=== PATIENT | female | born 1960 | race Caucasian/White ===

== ENCOUNTER 2016-12-02 07:28 | Inpatient (IN) ==
[2016-11-26 14:25] LABS: Appearance,Urine CLEAR; Bilirubin,Urine NEG (NEG); Color,Urine COLORLESS; Glucose,Urine (UA) NEGATIVE (NEG); Leukocyte Esterase,Urine NEG /uL (NEG); Nitrate,Urine NEG (NEG); Protein,Urine NEG (NEG); Specific Gravity,Urine 1.005 (1.000-1.035); Urine Blood NEG mg/dL (<0.03); Urobilinogen,Urine NEG (NEG)
[2016-11-26 14:33] LABS: Basophils # (Auto) 0 K/mcL (0.0-0.3); Basophils % (Auto) 0.5 % (0.0-2.0); Eosinophils # (Auto) 0.1 K/mcL (0.0-0.7); Eosinophils % (Auto) 1.1 % (0.0-7.0); Granulocytes % (Auto) 50.2 % (38.0-78.0); Lymphocytes # (Auto) 2.7 K/mcL (1.5-4.8); Lymphocytes % (Auto) 38.5 % (15.5-49.0); Mean Cell Volume 91.4 fL (80.0-100.0); Mean Corpuscular HGB Conc 33.7 g/dL (31.0-36.0); Mean Corpuscular Hemoglobin 30.8 pg (26.0-34.0); Monocytes # (Auto) 0.7 K/mcL (0.1-0.9); Monocytes % (Auto) 9.7 % (1.0-12.0); Platelet Count 284 K/mcL (140-440); Red Cell Distribution Width 12.9 % (11.5-14.5)
[2016-11-26 14:44] LABS: Blood Urea Nitrogen 17 mg/dl (6-20)
[~2016-12-02 07:28] MED LIST: ACETAMINOPHEN 500 MG TABLET PO SCH; CELECOXIB 200 MG CAPSULE PO SCH; KETOROLAC 30 MG, ROPIVACAINE HCL/PF 49.5 ML, EPINEPHrine 0.5 MG, 0.9 % SODIUM CHLORIDE ... IJ SCH; PREGABALIN 75 MG CAPSULE PO SCH; ceFAZolin 1 GM VIAL IV SCH; oxyCODONE 10 MG TAB.ER.12H PO SCH
[2016-12-02] MEDS ORDERED: SCOPOLAMINE 1 PATCH PATCH TOPICAL ONE (07:49)
[2016-12-02] MEDS ORDERED: ROPIVACAINE HCL/PF 30 ML VIAL IJ ONE (09:15)
[2016-12-02] MEDS ORDERED: PHENYLEPHRINE 10 MG/ML VIAL IV ONE (09:15)
[2016-12-02] MEDS ORDERED: TRANEXAMIC ACID 1,000 MG/10 ML VIAL IV ONE ×2 (09:15→11:25)
[2016-12-02] MEDS ORDERED: ONDANSETRON 4 MG/2 ML VIAL IV ONE (09:15)
[2016-12-02] MEDS ORDERED: PROPOFOL 200 MG/20 ML VIAL IV ONE (09:15)
[2016-12-02] MEDS ORDERED: DEXAMETHASONE 10 MG/ML VIAL IV ONE (09:15)
[2016-12-02] MEDS ORDERED: LIDOCAINE HCL/PF 100 MG/5 ML SYRINGE IV ONE (09:15)
[2016-12-02] MEDS ORDERED: fentaNYL 250 MCG/5 ML VIAL IV ONE (09:15)
[2016-12-02] MEDS ORDERED: MIDAZOLAM 2 MG/2 ML VIAL IV ONE (09:15)
[2016-12-02] MEDS ORDERED: HYDROCODONE/APAP 7.5/325MG TABLET PO PRN (09:22)
[2016-12-02] MEDS ORDERED: ONDANSETRON 4 MG/2 ML VIAL IV PRN ×3 (09:22→11:27)
[2016-12-02] MEDS ORDERED: HYDROmorphone 2 MG/ML SYRINGE IV PRN ×2 (09:22→11:27)
[2016-12-02] MEDS ORDERED: ONDANSETRON ODT 4 MG TABLET SL PRN ×2 (09:23→11:25)
[2016-12-02] MEDS ORDERED: NITROGLYCERIN 0.4 MG TAB.SUBL SL PRN ×2 (09:23→12:16)
[2016-12-02] MEDS ORDERED: ALBUTEROL SULFATE 1 PUFF INHALER INH PRN ×2 (09:23→12:14)
[2016-12-02] MEDS ORDERED: BENZOCAINE/MENTHOL 1 LOZENGE PO PRN ×2 (11:25→11:27)
[2016-12-02] MEDS ORDERED: BISACODYL 10 MG SUPP.RECT PR PRN (11:25)
[2016-12-02] MEDS ORDERED: FLEETS ADULT ENEMA PR PRN (11:25)
[2016-12-02] MEDS ORDERED: POLYETHYLENE GLYCOL 3350 17 GM PACKET PO PRN (11:25)
[2016-12-02] MEDS ORDERED: MAGNESIUM HYDROXIDE 30 ML ORAL.SUSP PO PRN (11:25)
[2016-12-02] MEDS ORDERED: ACETAMINOPHEN 325 MG TABLET PO PRN (11:25)
[2016-12-02] MEDS ORDERED: FLUMAZENIL 0.1 MG/ML ML IV PRN (11:27)
[2016-12-02] MEDS ORDERED: METOPROLOL TARTRATE 5 MG/5 ML VIAL IV PRN (11:27)
[2016-12-02] MEDS ORDERED: ATROPINE SULFATE 0.4 MG/ML VIAL IV PRN (11:27)
[2016-12-02] MEDS ORDERED: METHOCARBAMOL 1,000 MG/10 ML VIAL IV PRN (11:27)
[2016-12-02] MEDS ORDERED: IPRATROPIUM/ALBUTEROL 3 ML AMPUL.NEB NEB PRN (11:27)
[2016-12-02] MEDS ORDERED: NALOXONE HCL 0.4 MG/ML VIAL IV PRN (11:27)
[2016-12-02] MEDS ORDERED: diphenhydrAMINE 50 MG/ML VIAL IV PRN (11:27)
[2016-12-02] MEDS ORDERED: ePHEDrine 50 MG/ML AMPUL IV PRN (11:27)
[2016-12-02] MEDS ORDERED: MEPERIDINE 25 MG/ML SYRINGE IV PRN (11:27)
[2016-12-02] MEDS ORDERED: PROMETHAZINE 25 MG/ML VIAL IV PRN (11:27)
--- NOTE | 2016-12-02 11:33 | Brief Operative Note ---
Date of procedure: 12/02/16 Pre-op diagnosis: left knee djd Post-op diagnosis: same Procedure: left tka with david robot Grafts/Implants: Yes Anesthesia: GETA Surgeon: Elian Collins Receivable Executive: Irwin Davidson Estimated blood loss (cc): 50 Tourniquet Time (Minutes): 70 Specimens Removed/Pathology: none sent Condition: stable Disposition: PACU
[2016-12-02] MEDS: fentaNYL 100 MCG/2 ML VIAL IV PRN ×4 (11:40→12:19)
[2016-12-02] MEDS ORDERED: GENTAMICIN SULFATE 800 MG/20 ML VIAL IR ONE (11:42)
[2016-12-02] MEDS: KETOROLAC 15 MG/ML VIAL IV SCH ×3 (12:15→23:59)
[2016-12-02] MEDS ORDERED: SIMETHICONE 80 MG TAB.CHEW CHEWED PRN ×2 (12:18→12:30)
--- NOTE | 2016-12-02 12:30 | XRay Report ---
CLINICAL INFORMATION: Postop total knee prostheses COMPARISON: None. FINDINGS: Total knee prostheses is anatomically aligned. No osseous abnormality. Soft tissues swelling seen as expected IMPRESSION: Negative Interpreted and Authenticated by: Kwaku Nagy 12/02/16
--- NOTE | 2016-12-02 12:42 | Operative Note ---
DATE OF OPERATION: 12/02/2016 PREOPERATIVE DIAGNOSIS: Left knee degenerative arthritis and rheumatoid arthritis. POSTOPERATIVE DIAGNOSIS: Left knee degenerative arthritis and rheumatoid arthritis. PROCEDURE: Left HENOK robot total knee. SURGEON: Elian Collins MD [employer]INE [employer] PROFESSIONALS: Irwin Davidson PA-C ANESTHESIA: General LMA anesthesia. COMPLICATIONS: None. TOTAL TOURNIQUET TIME: 70 minutes. IMPLANTS: Size 3 tibia, 3 femur and 9 mm poly, cemented components with a 33 mm patellar button. ESTIMATED BLOOD LOSS: 50 mL. DESCRIPTION OF PROCEDURE: The patient was brought to the operating room and put to sleep with LMA anesthesia. Once asleep, the patient had the left leg sterilely prepped and draped in the usual sterile fashion. We identified the incision oakes, initials and the word 'yes'. We had a timeout and preapproved the knee as the correct side. Once this was done, we then sterilely prepped and draped the left lower extremity. We placed this in a leg rand. The leg was exsanguinated up to 250 pounds of pressure. We made a midline incision and mid vastus approach performed. This showed wear medially and laterally. We then proceeded with a total knee arthroplasty with pins below and above the knee. We registered the hip center of rotation medial and lateral malleoli. We registered the intra-articular pins, 1 on the tibia and 1 on the femur. We then registered 30 points on the femur and the tibia for a total knee. We took and balanced the knee, both at 15 degrees of flexion and 90 degrees of flexion. This showed about 3 degrees of recurvatum. We irrigated thoroughly and then brought the robot in and registered the robot and pin on the femur and made our distal femoral cut, posterior chamfer cut, changed the blade and made our anterior and posterior chamfer cuts and posterior cut. Once that was done, we then made the tibial cut. We trialed the components and punched them into place; however, this did reveal the knee to be too tight in extension with 6 degrees of flexion. We then cut another mm off the tibia with the reciprocating saw, retrialed. This seemed to give full extension and flexion. The knee had patella reprepared. This measured 23 mm. This was cut to 13 mm and a 33 mm button was placed with a small lateral chamfer. We irrigated thoroughly and then made our cuts and then trialed the component. These fit very well. We then cemented into place the size 3 femur with a 50 mm stem. A size 3 femoral component was tapped into place and a 9 mm poly. This was placed into extension. We then cemented into place a 33 mm patellar button. Excess cement was removed. Soft tissue injection posterior capsule was performed, medial and lateral. We irrigated thoroughly and then closed the mid vastus approach with #2 FiberWire and #2 double-armed #1 Maxon. We closed the skin with 2-0 Vicryl and adhesive closure. Superior and inferior pin sites were closed with nylon and the intraarticular pins were removed. We irrigated thoroughly. The patient tolerated this well. Sterile bandage was applied. Tourniquet deflated at 70 minutes. DIONI:toño Job ID: [id number] Doc ID: [id number] Elian Collins MD
[2016-12-02] MEDS ORDERED: 0.9 % SODIUM CHLORIDE 10 ML SYRINGE IV SCH (14:00)
[2016-12-02] MEDS: 0.45 % SODIUM CHLORIDE 1,000 ML IV SCH (14:05)
[2016-12-02] MEDS: 0.9 % SODIUM CHLORIDE 10 ML SYRINGE IV SCH ×2 (14:06→21:24)
[2016-12-02] MEDS ORDERED: LORazepam 1 MG TABLET PO SCH (15:00)
[2016-12-02] MEDS: LORazepam 1 MG TABLET PO SCH ×2 (15:39→21:23)
[2016-12-02] MEDS: HYDROcodone/APAP 10/325MG TABLET PO PRN ×2 (16:25→21:24)
[2016-12-02] MEDS: ceFAZolin 1 GM VIAL IV SCH (16:28)
[2016-12-02] MEDS ORDERED: PANTOPRAZOLE 40 MG TABLET PO SCH (21:00)
[2016-12-02] MEDS ORDERED: TEMAZEPAM 15 MG CAPSULE PO PRN (21:00)
[2016-12-02] MEDS ORDERED: BENZTROPINE 1 MG TABLET PO PRN ×2 (21:00)
[2016-12-02] MEDS ORDERED: MONTELUKAST 10 MG TABLET PO SCH (21:00)
[2016-12-02] MEDS ORDERED: FLUTICASONE/SALMETEROL 50/100 INHALER #14 INH SCH (21:00)
[2016-12-02] MEDS ORDERED: PRAMIPEXOLE 0.25 MG TABLET PO SCH (21:00)
[2016-12-02] MEDS ORDERED: QUEtiapine 100 MG TABLET PO SCH (21:00)
[2016-12-02] MEDS: FLUTICASONE/SALMETEROL 50/100 INHALER #14 INH SCH (21:20)
[2016-12-02] MEDS: PANTOPRAZOLE 40 MG TABLET PO SCH (21:21)
[2016-12-02] MEDS: ASPIRIN 325 MG ENTERIC COATED TABLET PO SCH (21:21)
[2016-12-02] MEDS: PRAMIPEXOLE 0.25 MG TABLET PO SCH (21:22)
[2016-12-02] MEDS: MONTELUKAST 10 MG TABLET PO SCH (21:22)
[2016-12-02] MEDS: DOCUSATE SODIUM 100 MG CAPSULE PO SCH (21:22)
[2016-12-02] MEDS: SENNOSIDES 1 TABLET PO SCH (21:22)
[2016-12-02] MEDS: QUEtiapine 100 MG TABLET PO SCH (23:02)
[2016-12-03] MEDS: HYDROcodone/APAP 10/325MG TABLET PO PRN ×6 (01:13→21:22)
[2016-12-03] MEDS: ceFAZolin 1 GM VIAL IV SCH (01:13)
[2016-12-03] MEDS: 0.45 % SODIUM CHLORIDE 1,000 ML IV SCH ×3 (01:14→18:20)
[2016-12-03] MEDS: HYDROmorphone 2 MG/ML SYRINGE IV PRN ×2 (04:28→18:54)
[2016-12-03] MEDS: 0.9 % SODIUM CHLORIDE 10 ML SYRINGE IV SCH ×3 (06:09→21:27)
[2016-12-03] MEDS: KETOROLAC 15 MG/ML VIAL IV SCH ×4 (06:16→23:33)
[2016-12-03] MEDS: LORazepam 1 MG TABLET PO SCH ×4 (06:58→21:21)
--- NOTE | 2016-12-03 07:20 | Orthopedic Progress Note ---
Subjective Patient information: Note initiated : 12/03/16 at 7:19 am Service Date, if different from initiated Date: [] Patient: Chucky,Marivel miller 56 y/o F admitted on 12/02/16 for Left Robotic Total Knee Arthroplasty. Chief Complaint: [Pt is stable this morning on post operative day 1 without any significant concerns or complaints. Patients vital signs have remained stable. Patients dressing is dry and exhibits a grossly intact neurovascular and neuromotor exam. Patients 10 point ROS is otherwise negative. ] Objective Vital signs: Vital Signs Temp Pulse Pulse Resp BP BP Pulse Ox 12/03/16 07:07 99.8 F H 72 16 114/68 94 12/03/16 03:33 98.4 F 73 16 149/61 95 12/03/16 02:20 96 12/03/16 01:12 84 95 12/03/16 00:00 99.3 F H 80 16 112/70 97 12/02/16 23:00 97 12/02/16 20:00 99.2 F H 85 16 146/77 96 12/02/16 15:25 97 12/02/16 15:00 97.9 F 18 129/72 97 12/02/16 14:30 98.0 F 18 137/81 98 12/02/16 13:34 97.5 F 18 152/79 98 12/02/16 13:19 97.9 F 18 142/90 100 12/02/16 13:04 98.0 F 18 156/92 99 12/02/16 12:49 18 158/94 99 12/02/16 12:34 98.2 F 18 143/87 99 12/02/16 12:27 98.6 F 82 20 158/78 96 12/02/16 12:00 88 14 146/76 96 12/02/16 11:45 86 12 139/44 90 12/02/16 11:33 98.7 F 90 14 125/99 90 12/02/16 07:39 97.7 F 18 144/75 96 12/02/16 07:28 22 Intake and Output 12/02/16 12/03/16 12/03/16 21:59 05:59 13:59 Intake Total 600 / 600 1300 / 1300 Output Total 575 / 575 650 / 650 Balance 650 / 650 Intake: IV 1000 / 1000 Sodium Chloride 0.45% 1, 1000 / 1000 000 ml @ 100 mls/hr IV . Q10H [facility] Rx#:[id number] Oral 600 / 600 300 / 300 Output: Void Amount 575 / 575 650 / 650 Other: Meal Egg salad sandwich Percent of Meal Consumed 75% Feeding Ability Independent # Voids 1 Weight 179 lb 8 oz Intake & Output: Intake & Output 12/02/16 12/03/16 12/03/16 21:59 05:59 13:59 Intake Total 600 / 600 1300 / 1300 Output Total 575 / 575 650 / 650 Balance 25 / 25 650 / 650 Weight 179 lb 8 oz Intake: IV 1000 / 1000 Sodium Chloride 0.45% 1, 1000 / 1000 000 ml @ 100 mls/hr IV . Q10H [facility] Rx#:[id number] Oral 600 / 600 300 / 300 Output: Void Amount 575 / 575 650 / 650 Other: Meal Egg salad sandwich Percent of Meal Consumed 75% Feeding Ability Independent # Voids 1 Incision: Yes healing Incision clean and dry: Yes Dressing: Yes clean Neurological exam IM: Yes motor sensory intact, Yes neurovascular intact Extremities exam IM: Yes Foot pink and warm, Yes neurovascular intact - Labs CBC & BMP: 12/03/16 05:47 11/26/16 12:05 Labs: Orthopedic Labs 11/26/16 12:06 PT 12.7 INR 0.9 APTT 31 12/03/16 11/26/16 05:47 12:06 Hgb 12.9 Hct 31.7 L 38.4 Assessment and Plan (1) Hx of total knee arthroplasty Patient has been educated regarding wound care and dressings, follow up recommendations, and medication use. We will f/u with the patient within 2-3 weeks for wound check. Status: Acute
--- NOTE | 2016-12-03 07:26 | Discharge Summary ---
Ortho Discharge - TKA - Patient Instructions Diet: Regular Diet Activity: activity as tolerated, weight bearing as tolerated Total Knee Protocol: For Total Knee: Start ROM DUKE with stationary bike or rocking chair. Work on gaining full extension of knee. Posterior dislocation precautions provided. Hip abductor strengthening and gait training instructions provided. Apply Cryocuff as instructed. Dressing Care: May shower in 2 days Patient Education: Total Knee Replacement (DC) Additional Instructions: Discharge Instructions: Do the exercises at home that physical therapy gave you. Take your prescription, photo ID, insurance cards, and current medication list with you to your first physical therapy appointment. 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 Weight bearing as tolerated. Keep incision clean and dry. You have Dermabond (a dressing with a mesh-like appearance), leave open to air. You may start showering on post op day #2. The Dermabond dressing can get wet, do not scrub dressing. Pat dry. To avoid constipation while taking any narcotic pain medication, take an over the counter stool softener/laxative. Use your Cryocuff or ice packs as directed, on for 20 minutes at a time throughout the day. This and elevation will help with pain and swelling. Call your physician for fevers above 100.5 or pain not controlled by medication. Your prescriptions are with your discharge information. Some medications were electronically transmitted to your pharmacy of choice.CMP for home use. - Problem Maintenance (1) Hx of total knee arthroplasty Status: Acute - Follow Up Plan Follow Up Appointments: Elian Collins MD [Physician] - 12/17/16 1:40 pm Disposition: Home, Self-Care Prognosis: Good Rehab Potential: Good I certify that the patient requires SNF services: No Overall status at discharge: patient is progressing back to baseline
[2016-12-03] MEDS ORDERED: NON FORMULARY MEDICATION 1 DOSE MISCELL (Aspirin [Ecotrin] 81 MG) PO SCH (09:00)
[2016-12-03] MEDS ORDERED: METOPROLOL SUCCINATE 25 MG TAB.XL.24H PO SCH (09:00)
[2016-12-03] MEDS ORDERED: LOSARTAN 50 MG TABLET PO SCH (09:00)
[2016-12-03] MEDS: FLUTICASONE/SALMETEROL 50/100 INHALER #14 INH SCH ×2 (10:12→21:25)
[2016-12-03] MEDS: ASPIRIN 325 MG ENTERIC COATED TABLET PO SCH ×2 (10:13→21:22)
[2016-12-03] MEDS: LOSARTAN 50 MG TABLET PO SCH (10:13)
[2016-12-03] MEDS: DOCUSATE SODIUM 100 MG CAPSULE PO SCH ×2 (10:13→21:21)
[2016-12-03] MEDS: METOPROLOL SUCCINATE 25 MG TAB.XL.24H PO SCH (10:14)
[2016-12-03] MEDS: SENNOSIDES 1 TABLET PO SCH (21:21)
[2016-12-03] MEDS: MONTELUKAST 10 MG TABLET PO SCH (21:21)
[2016-12-03] MEDS: PANTOPRAZOLE 40 MG TABLET PO SCH (21:21)
[2016-12-03] MEDS: PRAMIPEXOLE 0.25 MG TABLET PO SCH (21:22)
[2016-12-03] MEDS: QUEtiapine 100 MG TABLET PO SCH (22:47)
[2016-12-04] MEDS: HYDROcodone/APAP 10/325MG TABLET PO PRN (01:45)
[2016-12-04] MEDS: 0.45 % SODIUM CHLORIDE 1,000 ML IV SCH (03:13)
[2016-12-04] MEDS: KETOROLAC 15 MG/ML VIAL IV SCH (05:37)
[2016-12-04] MEDS: 0.9 % SODIUM CHLORIDE 10 ML SYRINGE IV SCH (05:37)
--- NOTE | 2016-12-04 07:05 | Orthopedic Progress Note ---
Subjective Patient information: Note initiated : 12/04/16 at 7:04 am Service Date, if different from initiated Date: [] Patient: Chucky,Marivel miller 56 y/o F admitted on 12/02/16 for Left Robotic Total Knee Arthroplasty. Chief Complaint: [minimal pain and amb well] Objective Vital signs: Vital Signs Temp Pulse Pulse Resp BP BP Pulse Ox 12/04/16 06:52 98.1 F 18 95/60 95 12/04/16 04:00 98.4 F 69 16 100/64 95 12/03/16 23:58 98.6 F 65 16 111/59 94 12/03/16 20:00 98.3 F 64 16 110/66 94 12/03/16 19:14 94 12/03/16 19:07 94 12/03/16 15:40 98.2 F 63 18 120/75 95 12/03/16 12:00 98.7 F 64 16 106/61 95 12/03/16 07:36 99.1 F H 12/03/16 07:25 94 12/03/16 07:07 99.8 F H 72 16 114/68 94 Intake and Output 12/03/16 12/04/16 12/04/16 21:59 05:59 13:59 Intake Total 1280 / 1280 600 / 600 Output Total 500 / 500 Balance 780 / 780 600 / 600 Intake: Oral 1280 / 1280 600 / 600 Output: Urine Catheter Amount 350 / 350 Void Amount 150 / 150 Other: Meal Dinner Percent of Meal Consumed 100% Feeding Ability Independent Weight 180 lb Intake & Output: Intake & Output 12/03/16 12/04/16 12/04/16 21:59 05:59 13:59 Intake Total 1280 / 1280 600 / 600 Output Total 500 / 500 Balance 780 / 780 600 / 600 Weight 180 lb Intake: Oral 1280 / 1280 600 / 600 Output: Urine Catheter Amount 350 / 350 Void Amount 150 / 150 Other: Meal Dinner Percent of Meal Consumed 100% Feeding Ability Independent Incision: Yes healing Incision clean and dry: Yes Dressing: Yes clean Weight bearing status: full Neurological exam IM: Yes alert, Yes oriented X3, Yes neurovascular intact - Labs CBC & BMP: 12/03/16 05:47 11/26/16 12:05 Labs: Orthopedic Labs 11/26/16 12:06 PT 12.7 INR 0.9 APTT 31 06/06/17 05/30/17 05:47 12:06 Hgb 12.9 Hct 31.7 L 38.4
[2016-12-04] MEDS: ASPIRIN 325 MG ENTERIC COATED TABLET PO SCH (08:13)
[2016-12-04] MEDS: LORazepam 1 MG TABLET PO SCH (08:13)
[2016-12-04] MEDS: METOPROLOL SUCCINATE 25 MG TAB.XL.24H PO SCH (08:13)
[2016-12-04] MEDS: DOCUSATE SODIUM 100 MG CAPSULE PO SCH (08:13)
[2016-12-04] MEDS: LOSARTAN 50 MG TABLET PO SCH (08:13)
[2016-12-04] MEDS: FLUTICASONE/SALMETEROL 50/100 INHALER #14 INH SCH (08:14)
== END 2016-12-04 10:00 | disposition home or self-care (01) | DRG 470 ==
LOC: MEDSUR 07:28
PROVIDERS: ADMIT Orthopaedic Surgery; ATTEND Orthopaedic Surgery

== ENCOUNTER 2019-01-11 08:38 | Inpatient (IN) ==
[2019-01-06 11:04] LABS: Basophils # (Auto) 0 K/mcL (0.0-0.3); Basophils % (Auto) 0.5 % (0.0-2.0); Eosinophils # (Auto) 0.2 K/mcL (0.0-0.7); Eosinophils % (Auto) 2.4 % (0.0-7.0); Granulocytes % (Auto) 64.1 % (38.0-78.0); Hemoglobin 13.1 g/dL (12.0-15.0); Lymphocytes % (Auto) 25.5 % (15.5-49.0); Mean Cell Volume 93.6 fL (80.0-100.0); Mean Corpuscular HGB Conc 33.5 g/dL (31.0-36.0); Mean Platelet Volume 9.2 fL (7.4-10.4); Monocytes # (Auto) 0.6 K/mcL (0.1-0.9); Monocytes % (Auto) 7.5 % (1.0-12.0); Platelet Count 270 K/mcL (140-440); RBC 4.16 M/mcL (4.00-5.20); Red Cell Distribution Width 12.6 % (11.5-14.5); WBC 7.8 K/mcL (4.5-11.0)
[2019-01-06 11:11] LABS: Blood Urea Nitrogen 17 mg/dl (6-20); Calcium 9.4 mg/dl (8.6-10.4); Carbon Dioxide 25 mmol/L (22-30); Chloride 100 mmol/L (96-108); Glomerular Filtration Rate 70; Glucose 105 mg/dL (70-105)
[2019-01-06 11:27] LABS: Appearance,Urine CLEAR; Bilirubin,Urine NEG (NEG); Color,Urine STRAW; Culture Indicated,Urine NO; Glucose,Urine (UA) NEGATIVE (NEG); Ketones,Urine NEG (NEG); Leukocyte Esterase,Urine NEG /uL (NEG); Nitrate,Urine NEG (NEG); Protein,Urine NEG (NEG); Specific Gravity,Urine 1.008 (1.000-1.035); Urine Blood NEG mg/dL (<0.03); Urobilinogen,Urine NEG (NEG)
[~2019-01-11 08:38] MED LIST changes: +0.9 % SODIUM CHLORIDE 9 ML, KETOROLAC 30 MG, ROPIVACAINE HCL/PF 49.5 ML, EPINEPHrine 0.... IJ SCH; +CELECOXIB 100 MG CAPSULE PO SCH; -CELECOXIB 200 MG CAPSULE PO SCH; -KETOROLAC 30 MG, ROPIVACAINE HCL/PF 49.5 ML, EPINEPHrine 0.5 MG, 0.9 % SODIUM CHLORIDE ... IJ SCH; +SCOPOLAMINE 1 PATCH PATCH TOPICAL ONE; -ceFAZolin 1 GM VIAL IV SCH; +ceFAZolin 2 GM in DEXTROSE 5% IN WATER 50 ML IV SCH
[2019-01-11] MEDS ORDERED: CELECOXIB 200 MG CAPSULE PO SCH (09:15)
[2019-01-11] MEDS ORDERED: PHENYLEPHRINE 10 MG/ML VIAL IV ONE (11:55)
[2019-01-11] MEDS ORDERED: LIDOCAINE HCL/PF 100 MG/5 ML SYRINGE IV ONE (11:55)
[2019-01-11] MEDS ORDERED: ONDANSETRON 4 MG/2 ML VIAL IV ONE (11:55)
[2019-01-11] MEDS ORDERED: TRANEXAMIC ACID 1,000 MG/10 ML VIAL IV ONE (11:55)
[2019-01-11] MEDS ORDERED: SUCCINYLCHOLINE 20 MG/ML ML IV ONE (11:55)
[2019-01-11] MEDS ORDERED: ROPIVACAINE HCL/PF 20 ML VIAL IJ ONE (11:55)
[2019-01-11] MEDS ORDERED: MIDAZOLAM 2 MG/2 ML VIAL IV ONE (11:55)
[2019-01-11] MEDS ORDERED: fentaNYL 100 MCG/2 ML VIAL IV ONE (11:55)
[2019-01-11] MEDS ORDERED: DEXAMETHASONE 10 MG/ML VIAL IV ONE (11:55)
[2019-01-11] MEDS ORDERED: PROPOFOL 200 MG/20 ML VIAL IV ONE (11:55)
[2019-01-11] MEDS ORDERED: fentaNYL 100 MCG/2 ML VIAL IV PRN (12:40)
[2019-01-11] MEDS ORDERED: diphenhydrAMINE 50 MG/ML VIAL IV PRN (12:40)
[2019-01-11] MEDS ORDERED: IPRATROPIUM/ALBUTEROL 3 ML AMPUL.NEB NEB PRN (12:40)
[2019-01-11] MEDS ORDERED: ePHEDrine 50 MG/ML AMPUL IV PRN (12:40)
[2019-01-11] MEDS ORDERED: ATROPINE SULFATE 0.4 MG/ML VIAL IV PRN (12:40)
[2019-01-11] MEDS ORDERED: METHOCARBAMOL 1,000 MG/10 ML VIAL IV PRN (12:40)
[2019-01-11] MEDS ORDERED: MEPERIDINE 25 MG/ML SYRINGE IV PRN (12:40)
[2019-01-11] MEDS ORDERED: PROMETHAZINE 25 MG/ML VIAL IV PRN (12:40)
[2019-01-11] MEDS ORDERED: HYDROmorphone 2 MG/ML VIAL IV PRN ×2 (12:40→13:22)
[2019-01-11] MEDS ORDERED: FLUMAZENIL 0.1 MG/ML ML IV PRN (12:40)
[2019-01-11] MEDS ORDERED: ONDANSETRON 4 MG/2 ML VIAL IV PRN ×2 (12:40→13:22)
[2019-01-11] MEDS ORDERED: METOPROLOL TARTRATE 5 MG/5 ML VIAL IV PRN (12:40)
[2019-01-11] MEDS ORDERED: NALOXONE HCL 0.4 MG/ML VIAL IV PRN (12:40)
[2019-01-11] MEDS ORDERED: LACTATED RINGERS 1,000 ML IV SCH (12:45)
[2019-01-11] MEDS ORDERED: GENTAMICIN SULFATE 800 MG/20 ML VIAL IR ONE (12:47)
[2019-01-11] MEDS ORDERED: FLEETS ADULT ENEMA PR PRN (13:22)
[2019-01-11] MEDS ORDERED: HYDROcodone/APAP 10/325MG TABLET PO PRN (13:22)
[2019-01-11] MEDS ORDERED: TRANEXAMIC ACID 1,000 MG/10 ML VIAL IV SCH (13:22)
[2019-01-11] MEDS ORDERED: MAGNESIUM HYDROXIDE 30 ML ORAL.SUSP PO PRN (13:22)
[2019-01-11] MEDS ORDERED: POLYETHYLENE GLYCOL 3350 17 GM PACKET PO PRN (13:22)
[2019-01-11] MEDS ORDERED: BISACODYL 10 MG SUPP.RECT PR PRN (13:22)
[2019-01-11] MEDS ORDERED: KETOROLAC 15 MG/ML VIAL IV PRN (13:22)
[2019-01-11] MEDS ORDERED: BENZOCAINE/MENTHOL 1 LOZENGE PO PRN (13:22)
[2019-01-11] MEDS ORDERED: ACETAMINOPHEN 325 MG TABLET PO PRN (13:22)
--- NOTE | 2019-01-11 13:22 | Brief Operative Note ---
Date of procedure: 01/11/19 Pre-op diagnosis: Right shoulder djd and bicep tendonopathy Post-op diagnosis: same Procedure: Right shouler tsa and bicep tenodesis Grafts/Implants: Yes Anesthesia: CAMELIA Surgeon: Elian Collins Special Crimes Investigator: Irwin Davidson Estimated blood loss (cc): 50 Specimens Removed/Pathology: none sent Condition: stable Disposition: PACU
[2019-01-11] MEDS ORDERED: FLUTICASONE HFA 44MCG INHALER INH PRN (13:24)
--- NOTE | 2019-01-11 15:03 | XRay Report ---
CLINICAL INFORMATION: Post-OP Total Shoulder COMPARISON: None. FINDINGS: Total shoulder prostheses is anatomically aligned. No osseous abnormality. Soft tissue swelling as expected. IMPRESSION: Negative Interpreted and Authenticated by: Kwaku Nagy 01/11/19
[2019-01-11] MEDS: 0.45 % SODIUM CHLORIDE 1,000 ML IV SCH (16:44)
[2019-01-11] MEDS: LORazepam 1 MG TABLET PO SCH ×2 (16:44→20:27)
[2019-01-11] MEDS: 0.9 % SODIUM CHLORIDE 10 ML SYRINGE IV SCH ×2 (16:44→20:30)
[2019-01-11] MEDS: ceFAZolin 1 GM VIAL IV SCH (20:26)
[2019-01-11] MEDS: DOCUSATE SODIUM 100 MG CAPSULE PO SCH (20:30)
[2019-01-11] MEDS ORDERED: QUEtiapine 100 MG TABLET PO SCH (21:00)
[2019-01-11] MEDS ORDERED: TEMAZEPAM 15 MG CAPSULE PO PRN (21:00)
[2019-01-11] MEDS ORDERED: SENNOSIDES 1 TABLET PO SCH (21:00)
[2019-01-11] MEDS ORDERED: MONTELUKAST 10 MG TABLET PO SCH (21:00)
[2019-01-11] MEDS ORDERED: OMEPRAZOLE 20 MG CAPSULE PO SCH (21:00)
[2019-01-12] MEDS: ceFAZolin 1 GM VIAL IV SCH (03:21)
[2019-01-12] MEDS: 0.45 % SODIUM CHLORIDE 1,000 ML IV SCH ×2 (03:22→08:32)
[2019-01-12] MEDS: oxyCODONE HCL 5 MG TABLET PO PRN ×2 (03:27→07:37)
[2019-01-12] MEDS: 0.9 % SODIUM CHLORIDE 10 ML SYRINGE IV SCH (04:47)
--- NOTE | 2019-01-12 07:22 | Orthopedic Progress Note ---
Subjective Patient information: Note initiated : 01/12/19 at 7:21 am Service Date, if different from initiated Date: [] Patient: Chucky,Marivel miller 58 y/o F admitted on 01/11/19 for Right Total Shoulder Arthroplasty to Include. Chief Complaint: [Pt is stable this morning on post operative day 1 without any significant concerns or complaints. Patients vital signs have remained stable. Patients dressing is dry and is grossly intact from a neuro vascular and motor standpoint. Patients 10 point ROS is otherwise negative. ] Objective Vital signs: Vital Signs Temp Pulse Resp BP Pulse Ox 01/12/19 04:00 98.2 F 76 16 136/71 93 01/11/19 23:04 97.6 F 93 H 16 104/68 93 01/11/19 19:26 97.9 F 94 H 18 149/78 98 01/11/19 17:40 92 H 143/74 96 01/11/19 17:02 92 H 01/11/19 16:39 92 H 143/74 96 01/11/19 16:10 86 138/72 97 01/11/19 15:39 66 135/75 98 01/11/19 15:24 67 126/70 97 01/11/19 14:55 65 131/73 97 01/11/19 14:39 64 118/73 97 01/11/19 14:25 97.7 F 70 12 132/84 100 01/11/19 14:15 98.2 F 74 16 114/70 96 01/11/19 14:05 85 20 113/76 93 01/11/19 13:55 98 F 85 13 121/69 98 01/11/19 13:50 83 16 121/69 99 01/11/19 13:45 82 12 125/80 98 01/11/19 13:44 98.1 F 85 15 126/70 98 01/11/19 09:04 98.2 F 84 16 137/72 96 01/11/19 08:38 98.2 F 84 16 137/72 96 Intake and Output 01/11/19 01/12/19 01/12/19 21:59 05:59 13:59 Intake Total 240 1560 Output Total 350 300 Balance -110 1260 Intake: IV 1260 Sodium Chloride 0.45% 1,000 ml 1260 @ 100 mls/hr IV .Q10H [facility] Rx#: [id number] Oral 240 300 Output: Urine Catheter Amount 300 Void Amount 50 300 Other: Meal Dinner Percent of Meal Consumed 100% Urine Appearance Clear Clear Urine Color Bright Yellow Light Adelina Urine Odor Normal # Voids 1 Weight 160 lb Intake & Output: Intake & Output 01/11/19 01/12/19 01/12/19 21:59 05:59 13:59 Intake Total 240 1560 Output Total 350 300 Balance -110 1260 Weight 160 lb Intake: IV 1260 Sodium Chloride 0.45% 1,000 ml 1260 @ 100 mls/hr IV .Q10H [facility] Rx#: [id number] Oral 240 300 Output: Urine Catheter Amount 300 Void Amount 50 300 Other: Meal Dinner Percent of Meal Consumed 100% Urine Appearance Clear Clear Urine Color Bright Yellow Light Adelina Urine Odor Normal # Voids 1 Incision: Yes healing Incision clean and dry: Yes Dressing: Yes clean Weight bearing status: full Neurological exam IM: Yes motor sensory intact, Yes neurovascular intact Extremities exam IM: Yes Foot pink and warm, Yes neurovascular intact - Labs CBC & BMP: 01/06/19 09:33 01/06/19 09:33 Labs: 01/06/19 09:33 Hgb 13.1 Hct 39.0 Assessment and Plan (1) Hx of total shoulder replacement The patient has been educated regarding dressing care, Physical Therapy recommendations, home exercises, restrictions, and follow up appointments. The patient has had all necessary DME prescribed. The patient has remained relatively stable during their hospital course. Leave Dermabond patch intact until followup Status: Acute (2) Hx of total shoulder replacement Status: Acute
--- NOTE | 2019-01-12 07:25 | Discharge Summary ---
Ortho Discharge - TSA - Patient Instructions Diet: Regular Diet Activity: activity as tolerated, weight bearing as tolerated Total Shoulder Protocol: Leave immobilizer in place except for bathing and ROM. Abduction pillow. Continue to wear sling until seen by physician. Codman Pendulum : These exercises use momentum produced by your body to move your shoulder joint. Bend your knees and shift your weight to your front leg, then back, allowing your arm to swing in the same directions. Using the same technique, alternately shift your weight between your right and left legs, allowing your arm to swing from side to side. These exercises are also performed in counterclockwise and clockwise circular motions. Typically these exercises are performed several times per day, for a set number repetitions or minutes, such as 20 times in a row or 5 minutes at a time. Dressing Care: May shower in 2 days - Problem Maintenance (1) Hx of total shoulder replacement Status: Acute (2) Hx of total shoulder replacement Status: Acute - Follow Up Plan Follow Up Appointments: Irwin Davidson PA-C [Physician Amf Mechanic] - 01/26/19 1:00 pm Disposition: Home, Self-Care Prognosis: Good Rehab Potential: Good I certify that the patient requires SNF services: No Overall status at discharge: patient is progressing back to baseline - Orders For Discharge Prescriptions: Docusate Sodium [Colace] 100 mg PO BID #60 cap oxyCODONE HCL [Roxicodone] 1 - 2 tab PO Q4-6HP PRN #75 tab PRN Reason: Pain Level 3-6
--- NOTE | 2019-01-12 07:47 | Operative Note ---
DATE OF OPERATION: 01/11/2019 PREOPERATIVE DIAGNOSES: 1. Right shoulder degenerative arthritis, severe. 2. Biceps tendinopathy. POSTOPERATIVE DIAGNOSES: 1. Right shoulder degenerative arthritis, severe. 2. Biceps tendinopathy. PROCEDURE: Right total shoulder arthroplasty with biceps tenodesis. SURGEON: Elian Collins M.D. IT SOFTWARE ENGINEER: Irwin Davidson PA-C. The PA's assistance was required for the safe and efficient completion of the entire case. This provider's expertise and technical skill were required throughout the case. The PA assisted with preoperative coordination, intraoperative retraction, wound closure, dressing and splint application, as well as postoperative documentation and care coordination. ANESTHESIA: General LMA anesthesia. COMPLICATIONS: None. ESTIMATED BLOOD LOSS: About 50 mL. DESCRIPTION OF PROCEDURE: The patient was brought to the operating room and put to sleep with general LMA anesthesia. Once asleep, the patient had the right shoulder sterilely prepped and draped in the usual sterile fashion. Once this was accomplished, a timeout was performed confirming the operative site. A deltopectoral approach was performed and exposed the joint. We then released the subscap using an osteotomy of the lesser tuberosity. Once this was released, we then dislocated the humeral head, made our neck cut at the anatomical area at 135 degrees. Once this was done, we then placed a protective pad. We inspected the rotator cuff, which seemed to be intact, supraspinatus, infraspinatus, and teres minor. At this point, we performed a total shoulder. Hip was subluxed posteriorly. We performed a 360 degree capsular release with release the remnants of the biceps tendon. Once this was done, we then reamed centrally in the glenoid for a 44 mm glenoid. We then placed four peg holes and the glenoid was then cemented into place. Once the cement was dry, we then prepared the humeral side. This was a cementless stem. We then placed a small amount of cement distally to keep it well fixed, tapped this into place, and trialed it. This seemed to fit very nicely with a 20 mm thick by 20 mm humeral head. This matched the patient's anatomy and tension. We then implanted the final implants. We then closed the subscap through drill holes and oversewed the soft tissue repair. We closed the interval with Supramid suture. We then closed the skin after thorough irrigation and adhesive closure for the final layer was performed. A DonJoy sling was fitted and given to the patient at the end of the case. Blood loss was about 50 mL. RBH:eleno Job ID: [id number] Doc ID: [id number] Elian Collins MD
[2019-01-12] MEDS ORDERED: KETOROLAC TROMETHAMINE 10 MG TABLET PO ONE (08:16)
[2019-01-12] MEDS: DOCUSATE SODIUM 100 MG CAPSULE PO SCH (08:31)
[2019-01-12] MEDS: LORazepam 1 MG TABLET PO SCH (08:32)
[2019-01-12] MEDS ORDERED: LOSARTAN 50 MG TABLET PO SCH (09:00)
[2019-01-12] MEDS ORDERED: amLODIPine 5 MG TABLET PO SCH (09:00)
[2019-01-12] MEDS ORDERED: FESOTERODINE FUMARATE 8 MG PO SCH (09:00)
== END 2019-01-12 10:03 | disposition home or self-care (01) | DRG 483 ==
LOC: MEDSUR 08:38
PROVIDERS: ADMIT Orthopaedic Surgery; ATTEND Orthopaedic Surgery